=== PATIENT | male | born 1935 | race Caucasian/White ===

== ENCOUNTER 2018-02-28 04:44 | Inpatient (IN) | payer MEDICARE, OTHER ==
[2018-02-28 07:05] LABS: BASO % 0.3 % (0.0-1.0); EOS # 0.1 10^3/uL (0.0-0.50); EOS % 1.1 % (0.0-3.0); HEMATOCRIT 28.6 % (42.0-52.0); HEMOGLOBIN 8.9 g/dl (13.5-17.5); IMMATURE GRANULOCYTE % 1.6 % (0-3.0); LYMPH # 1.5 10^3/uL (1.5-4.5); LYMPH % 12.5 % (24.0-44.0); MEAN CORPUSCULAR HEMOGLOBIN 27.2 pg (27.0-33.0); MEAN CORPUSCULAR HGB CONC 31.1 g/dl (32.0-36.5); MEAN CORPUSCULAR VOLUME 87.5 fl (80.0-96.0); MONO % 8.4 % (0.0-5.0); NEUTROPHILS # 8.8 10^3/uL (1.8-7.7); NEUTROPHILS % 76.1 % (36.0-66.0); PLATELET COUNT, AUTOMATED 299 10^3/uL (150-450); RED BLOOD COUNT 3.27 10^6/uL (4.30-6.10); RED CELL DISTRIBUTION WIDTH 15.1 % (11.5-14.5); WHITE BLOOD COUNT 11.6 10^3/uL (4.0-10.0)
[2018-02-28 07:26] LABS: ALBUMIN 2.2 GM/DL (3.2-5.2); ALBUMIN/GLOBULIN RATIO 0.41 (1.00-1.93); ALKALINE PHOSPHATASE 185 U/L (45-117); ALT/SGPT 30 U/L (12-78); ANION GAP 8 MEQ/L (8-16); AST/SGOT 30 U/L (7-37); BILIRUBIN,DIRECT < 0.1 MG/DL (0.0-0.2); BILIRUBIN,TOTAL 0.3 MG/DL (0.2-1.0); BLOOD UREA NITROGEN 36 MG/DL (7-18); CALCIUM LEVEL 8.8 MG/DL (8.8-10.2); CARBON DIOXIDE LEVEL 23 MEQ/L (21-32); CHLORIDE LEVEL 111 MEQ/L (98-107); CREATININE FOR GFR 2.27 MG/DL (0.70-1.30); GLOMERULAR FILTRATION RATE 29.6 (>35); GLUCOSE, FASTING 176 MG/DL (70-100); LIPASE 33 U/L (73-393); SODIUM LEVEL 142 MEQ/L (136-145); TOTAL PROTEIN 7.6 GM/DL (6.4-8.2)
[2018-02-28] MEDS: NS 1,000 ML IV ×3 (07:38→23:17)
[2018-02-28] MEDS ORDERED: GASTROGRAFIN SOLUTION 30ML (Q9963) As Ordered (07:56)
[2018-02-28] MEDS: BICALUTAMIDE 50 MG TAB PO (09:00)
[2018-02-28] MEDS: ATENOLOL 25 MG TAB PO (09:00)
[2018-02-28 09:27] LABS: KETONE, URINE AUTO RFX NEGATIVE (NEGATIVE); LEUKOCYTE ESTERASE UR AUTO RFX NEGATIVE (NEGATIVE); MUCUS, URINE RFX SMALL (NEGATIVE); NITRITE, URINE AUTO RFX NEGATIVE (NEGATIVE); RBC, URINE AUTO RFX 0 /HPF (0-3); SPECIFIC GRAVITY UR AUTO RFX 1.015 (1.002-1.035); SQUAM EPITHELIAL CELL UR AURFX 0 /HPF (0-6); WBC, URINE AUTO RFX 3 /HPF (0-3)
[2018-02-28] MEDS: PERCOCET 5MG/325MG TAB PO (11:24)
[2018-02-28] MEDS ORDERED: FUROSEMIDE 20 MG/2 ML VIAL (J1940) As Ordered (15:09)
[2018-02-28 17:57] LABS: BEDSIDE GLUCOSE 143 MG/DL (83-110)
[2018-02-28] MEDS ORDERED: ACETAMINOPHEN TAB 650MG DOSE (2X325MG) PO (18:45)
[2018-02-28] MEDS ORDERED: GLUCOSE 4 GM CHEW TABLET PO (19:00)
[2018-02-28] MEDS ORDERED: GLUCAGON FOR INJ 1 MG VIAL (J1610) SC (19:00)
[2018-02-28] MEDS: HumaLOG INSULIN (NovoLOG) PER UNIT SC (21:00)
[2018-02-28 22:35] LABS: BEDSIDE GLUCOSE 161 MG/DL (83-110)
[2018-02-28] MEDS: ISOSORBIDE MON. (IMDUR) 60 MG XR TAB PO (23:17)
[2018-02-28] MEDS: SENOKOT S TAB PO (23:17)
[2018-02-28] MEDS: SIMVASTATIN 20 MG TAB PO (23:17)
[2018-02-28] MEDS: DOCUSATE SODIUM 100 MG CAP PO (23:17)
[2018-02-28] MEDS: CALCIUM CARBONATE 500 MG CHEW U/D PO (23:18)
[2018-02-28] MEDS: SODIUM BICARBONATE 325 MG TAB PO (23:35)
[2018-02-28] MEDS: TOLTERODINE TARTRATE 2 MG LA CAP (DETROL LA) PO (23:35)
[2018-02-28] MEDS: MIRTAZAPINE 7.5MG PER 1/2 TABLET PO (23:35)
[2018-03-01] MEDS: ANEXSIA, NORCO 7.5MG/325MG TABLET(HYDROCODONE/APAP) PO ×3 (00:06→21:21)
[2018-03-01] MEDS: NS 1,000 ML IV ×3 (06:11→21:18)
[2018-03-01 06:56] LABS: BASO % 0.3 % (0.0-1.0); EOS # 0.1 10^3/uL (0.0-0.50); EOS % 0.7 % (0.0-3.0); HEMATOCRIT 27.2 % (42.0-52.0); HEMOGLOBIN 8.9 g/dl (13.5-17.5); IMMATURE GRANULOCYTE % 1.3 % (0-3.0); LYMPH # 1.4 10^3/uL (1.5-4.5); LYMPH % 12.6 % (24.0-44.0); MEAN CORPUSCULAR HEMOGLOBIN 27.6 pg (27.0-33.0); MEAN CORPUSCULAR HGB CONC 32.7 g/dl (32.0-36.5); MEAN CORPUSCULAR VOLUME 84.2 fl (80.0-96.0); MONO # 0.9 10^3/uL (0.0-0.8); MONO % 8.7 % (0.0-5.0); NEUTROPHILS # 8.2 10^3/uL (1.8-7.7); NEUTROPHILS % 76.4 % (36.0-66.0); PLATELET COUNT, AUTOMATED 296 10^3/uL (150-450); RED BLOOD COUNT 3.23 10^6/uL (4.30-6.10); WHITE BLOOD COUNT 10.7 10^3/uL (4.0-10.0)
[2018-03-01 07:20] LABS: ALBUMIN/GLOBULIN RATIO 0.38 (1.00-1.93); ALKALINE PHOSPHATASE 178 U/L (45-117); ALT/SGPT 25 U/L (12-78); ANION GAP 11 MEQ/L (8-16); AST/SGOT 21 U/L (7-37); BILIRUBIN,TOTAL 0.5 MG/DL (0.2-1.0); BLOOD UREA NITROGEN 30 MG/DL (7-18); CALCIUM LEVEL 8.5 MG/DL (8.8-10.2); CARBON DIOXIDE LEVEL 21 MEQ/L (21-32); CHLORIDE LEVEL 107 MEQ/L (98-107); CREATININE FOR GFR 1.89 MG/DL (0.70-1.30); GLOMERULAR FILTRATION RATE 36.5 (>35); GLUCOSE, FASTING 176 MG/DL (70-100); MAGNESIUM LEVEL 1.6 MG/DL (1.8-2.4); PHOSPHORUS LEVEL 3.9 MG/DL (2.5-4.9); POTASSIUM SERUM 4.1 MEQ/L (3.5-5.1); SODIUM LEVEL 139 MEQ/L (136-145); TOTAL PROTEIN 7.2 GM/DL (6.4-8.2)
[2018-03-01] MEDS: ATENOLOL 25 MG TAB PO (08:14)
[2018-03-01] MEDS: OMEPRAZOLE 20 MG CAP PO (08:14)
[2018-03-01] MEDS: LEVEMIR (INSULIN DETEMIR) 1 UNITS/0.01ML SC (08:15)
[2018-03-01] MEDS: SENOKOT S TAB PO ×2 (08:15→21:19)
[2018-03-01] MEDS: DOCUSATE SODIUM 100 MG CAP PO ×2 (08:15→21:20)
[2018-03-01] MEDS: ASPIRIN 81 MG ENTERIC TAB PO (08:15)
[2018-03-01] MEDS: HumaLOG INSULIN (NovoLOG) PER UNIT SC ×4 (08:16→20:14)
[2018-03-01] MEDS: SODIUM BICARBONATE 325 MG TAB PO ×2 (08:20→21:19)
[2018-03-01] MEDS: BICALUTAMIDE 50 MG TAB PO (08:20)
[2018-03-01 11:40] LABS: BEDSIDE GLUCOSE 138 MG/DL (83-110)
[2018-03-01 17:05] LABS: BEDSIDE GLUCOSE 52 MG/DL (83-110)
[2018-03-01 17:05] LABS: BEDSIDE GLUCOSE 46 MG/DL (83-110)
[2018-03-01] MEDS: ENOXAPARIN 30 MG/0.3 ML SYR (J1650) SC (17:19)
[2018-03-01 20:08] LABS: BEDSIDE GLUCOSE 62 MG/DL (83-110)
[2018-03-01] MEDS: MIRTAZAPINE 7.5MG PER 1/2 TABLET PO (21:18)
[2018-03-01] MEDS: ISOSORBIDE MON. (IMDUR) 60 MG XR TAB PO (21:19)
[2018-03-01] MEDS: SIMVASTATIN 20 MG TAB PO (21:19)
[2018-03-01] MEDS: TOLTERODINE TARTRATE 2 MG LA CAP (DETROL LA) PO (21:19)
[2018-03-01] MEDS: MAGNESIUM OXIDE 400 MG TAB (MAG-OX) PO (21:19)
[2018-03-01 22:22] LABS: BEDSIDE GLUCOSE 75 MG/DL (83-110)
[2018-03-01 22:24] LABS: BEDSIDE GLUCOSE 121 MG/DL (83-110)
[2018-03-02] MEDS: NS 1,000 ML IV ×4 (00:46→20:03)
[2018-03-02] MEDS: ANEXSIA, NORCO 7.5MG/325MG TABLET(HYDROCODONE/APAP) PO ×2 (06:16→20:06)
[2018-03-02 06:33] LABS: BASO % 0.3 % (0.0-1.0); EOS # 0.1 10^3/uL (0.0-0.50); HEMATOCRIT 28.6 % (42.0-52.0); HEMOGLOBIN 9.1 g/dl (13.5-17.5); IMMATURE GRANULOCYTE % 1.4 % (0-3.0); LYMPH # 1.4 10^3/uL (1.5-4.5); LYMPH % 13.8 % (24.0-44.0); MEAN CORPUSCULAR HEMOGLOBIN 27.5 pg (27.0-33.0); MEAN CORPUSCULAR HGB CONC 31.8 g/dl (32.0-36.5); MEAN CORPUSCULAR VOLUME 86.4 fl (80.0-96.0); MONO # 0.9 10^3/uL (0.0-0.8); MONO % 8.1 % (0.0-5.0); NEUTROPHILS # 7.9 10^3/uL (1.8-7.7); NEUTROPHILS % 75.4 % (36.0-66.0); PLATELET COUNT, AUTOMATED 283 10^3/uL (150-450); RED BLOOD COUNT 3.31 10^6/uL (4.30-6.10); WHITE BLOOD COUNT 10.4 10^3/uL (4.0-10.0)
[2018-03-02 06:57] LABS: ALBUMIN 1.8 GM/DL (3.2-5.2); ALBUMIN/GLOBULIN RATIO 0.34 (1.00-1.93); ALKALINE PHOSPHATASE 169 U/L (45-117); ALT/SGPT 22 U/L (12-78); ANION GAP 10 MEQ/L (8-16); AST/SGOT 28 U/L (7-37); BILIRUBIN,TOTAL 0.3 MG/DL (0.2-1.0); BLOOD UREA NITROGEN 29 MG/DL (7-18); CALCIUM LEVEL 8.2 MG/DL (8.8-10.2); CARBON DIOXIDE LEVEL 20 MEQ/L (21-32); CHLORIDE LEVEL 111 MEQ/L (98-107); CREATININE FOR GFR 1.66 MG/DL (0.70-1.30); GLOMERULAR FILTRATION RATE 42.4 (>35); GLUCOSE, FASTING 71 MG/DL (70-100); MAGNESIUM LEVEL 1.6 MG/DL (1.8-2.4); POTASSIUM SERUM 4.2 MEQ/L (3.5-5.1); SODIUM LEVEL 141 MEQ/L (136-145); TOTAL PROTEIN 7.1 GM/DL (6.4-8.2)
[2018-03-02] MEDS: HumaLOG INSULIN (NovoLOG) PER UNIT SC ×4 (07:58→20:06)
[2018-03-02] MEDS: MAGNESIUM OXIDE 400 MG TAB (MAG-OX) PO ×3 (09:33→20:05)
[2018-03-02] MEDS: BICALUTAMIDE 50 MG TAB PO ×2 (09:33→12:44)
[2018-03-02] MEDS: OMEPRAZOLE 20 MG CAP PO (09:33)
[2018-03-02] MEDS: DOCUSATE SODIUM 100 MG CAP PO ×2 (09:33→20:05)
[2018-03-02] MEDS: SODIUM BICARBONATE 325 MG TAB PO ×2 (09:33→20:04)
[2018-03-02] MEDS: SENOKOT S TAB PO ×2 (09:34→20:05)
[2018-03-02] MEDS: LEVEMIR (INSULIN DETEMIR) 1 UNITS/0.01ML SC (09:34)
[2018-03-02] MEDS: ASPIRIN 81 MG ENTERIC TAB PO (09:34)
[2018-03-02] MEDS: ATENOLOL 25 MG TAB PO (09:35)
[2018-03-02] MEDS: ENOXAPARIN 30 MG/0.3 ML SYR (J1650) SC (09:36)
[2018-03-02 11:43] LABS: BEDSIDE GLUCOSE 185 MG/DL (83-110)
[2018-03-02 12:21] LABS: BEDSIDE GLUCOSE 153 MG/DL (83-110)
[2018-03-02] MEDS: DEXTROSE 50% 50 ML SYRINGE IV (17:27)
[2018-03-02] MEDS: ISOSORBIDE MON. (IMDUR) 60 MG XR TAB PO (20:04)
[2018-03-02] MEDS: TOLTERODINE TARTRATE 2 MG LA CAP (DETROL LA) PO (20:04)
[2018-03-02] MEDS: SIMVASTATIN 20 MG TAB PO (20:05)
[2018-03-02] MEDS: MIRTAZAPINE 7.5MG PER 1/2 TABLET PO (20:05)
[2018-03-02 20:06] LABS: BEDSIDE GLUCOSE 82 MG/DL (83-110)
[2018-03-03 00:20] LABS: PSA TOTAL 1.6 ng/mL (0.0-4.0); TESTOSTERONE FREE (DIRECT) 3.1 pg/mL (6.6-18.1)
[2018-03-03] MEDS: NS 1,000 ML IV ×3 (03:56→20:23)
[2018-03-03 06:26] LABS: BASO % 0.2 % (0.0-1.0); EOS # 0.1 10^3/uL (0.0-0.50); EOS % 1.1 % (0.0-3.0); HEMATOCRIT 26.5 % (42.0-52.0); HEMOGLOBIN 8.4 g/dl (13.5-17.5); IMMATURE GRANULOCYTE % 1.2 % (0-3.0); LYMPH % 11.8 % (24.0-44.0); MEAN CORPUSCULAR HEMOGLOBIN 27.4 pg (27.0-33.0); MEAN CORPUSCULAR HGB CONC 31.7 g/dl (32.0-36.5); MEAN CORPUSCULAR VOLUME 86.3 fl (80.0-96.0); MONO # 0.7 10^3/uL (0.0-0.8); MONO % 7.7 % (0.0-5.0); NEUTROPHILS # 6.7 10^3/uL (1.8-7.7); PLATELET COUNT, AUTOMATED 277 10^3/uL (150-450); RED BLOOD COUNT 3.07 10^6/uL (4.30-6.10); RED CELL DISTRIBUTION WIDTH 15.2 % (11.5-14.5); WHITE BLOOD COUNT 8.6 10^3/uL (4.0-10.0)
[2018-03-03 06:51] LABS: ALBUMIN 1.7 GM/DL (3.2-5.2); ALBUMIN/GLOBULIN RATIO 0.37 (1.00-1.93); ALKALINE PHOSPHATASE 156 U/L (45-117); ALT/SGPT 21 U/L (12-78); ANION GAP 9 MEQ/L (8-16); AST/SGOT 27 U/L (7-37); BILIRUBIN,TOTAL 0.2 MG/DL (0.2-1.0); BLOOD UREA NITROGEN 25 MG/DL (7-18); CALCIUM LEVEL 8.3 MG/DL (8.8-10.2); CARBON DIOXIDE LEVEL 21 MEQ/L (21-32); CHLORIDE LEVEL 112 MEQ/L (98-107); CREATININE FOR GFR 1.56 MG/DL (0.70-1.30); GLOMERULAR FILTRATION RATE 45.6 (>35); GLUCOSE, FASTING 56 MG/DL (70-100); MAGNESIUM LEVEL 1.7 MG/DL (1.8-2.4); POTASSIUM SERUM 3.9 MEQ/L (3.5-5.1); SODIUM LEVEL 142 MEQ/L (136-145); TOTAL PROTEIN 6.3 GM/DL (6.4-8.2)
[2018-03-03] MEDS: HumaLOG INSULIN (NovoLOG) PER UNIT SC ×5 (07:38→22:17)
[2018-03-03] MEDS: ANEXSIA, NORCO 7.5MG/325MG TABLET(HYDROCODONE/APAP) PO ×2 (08:48→20:23)
[2018-03-03] MEDS: SODIUM BICARBONATE 325 MG TAB PO ×2 (08:48→20:22)
[2018-03-03] MEDS: BICALUTAMIDE 50 MG TAB PO (08:49)
[2018-03-03] MEDS: ENOXAPARIN 30 MG/0.3 ML SYR (J1650) SC (08:49)
[2018-03-03] MEDS: ATENOLOL 25 MG TAB PO (08:49)
[2018-03-03] MEDS: MAGNESIUM OXIDE 400 MG TAB (MAG-OX) PO ×3 (08:50→20:22)
[2018-03-03] MEDS: ASPIRIN 81 MG ENTERIC TAB PO (08:50)
[2018-03-03] MEDS: DOCUSATE SODIUM 100 MG CAP PO ×2 (08:50→20:22)
[2018-03-03] MEDS: SENOKOT S TAB PO ×2 (08:50→20:22)
[2018-03-03] MEDS: OMEPRAZOLE 20 MG CAP PO (08:50)
[2018-03-03] MEDS ORDERED: LEVEMIR (INSULIN DETEMIR) 1 UNITS/0.01ML SC (09:00)
[2018-03-03] MEDS: ISOSORBIDE MON. (IMDUR) 60 MG XR TAB PO (20:21)
[2018-03-03] MEDS: MIRTAZAPINE 7.5MG PER 1/2 TABLET PO (20:21)
[2018-03-03] MEDS: TOLTERODINE TARTRATE 2 MG LA CAP (DETROL LA) PO (20:22)
[2018-03-03] MEDS: SIMVASTATIN 20 MG TAB PO (20:22)
[2018-03-03 20:49] LABS: BEDSIDE GLUCOSE 264 MG/DL (83-110)
[2018-03-04] MEDS: NS 1,000 ML IV ×3 (05:50→21:40)
[2018-03-04] MEDS: ANEXSIA, NORCO 7.5MG/325MG TABLET(HYDROCODONE/APAP) PO ×3 (05:51→21:40)
[2018-03-04 06:04] LABS: BASO % 0.6 % (0.0-1.0); EOS # 0.1 10^3/uL (0.0-0.50); EOS % 1.7 % (0.0-3.0); HEMATOCRIT 26.8 % (42.0-52.0); HEMOGLOBIN 8.6 g/dl (13.5-17.5); IMMATURE GRANULOCYTE % 1.6 % (0-3.0); LYMPH # 1.2 10^3/uL (1.5-4.5); LYMPH % 16.8 % (24.0-44.0); MEAN CORPUSCULAR HEMOGLOBIN 27.7 pg (27.0-33.0); MEAN CORPUSCULAR HGB CONC 32.1 g/dl (32.0-36.5); MEAN CORPUSCULAR VOLUME 86.5 fl (80.0-96.0); MONO # 0.5 10^3/uL (0.0-0.8); MONO % 7.8 % (0.0-5.0); NEUTROPHILS % 71.5 % (36.0-66.0); PLATELET COUNT, AUTOMATED 269 10^3/uL (150-450); RED CELL DISTRIBUTION WIDTH 15.1 % (11.5-14.5)
[2018-03-04 06:27] LABS: ALBUMIN 1.8 GM/DL (3.2-5.2); ALBUMIN/GLOBULIN RATIO 0.38 (1.00-1.93); ALKALINE PHOSPHATASE 165 U/L (45-117); ALT/SGPT 24 U/L (12-78); ANION GAP 9 MEQ/L (8-16); AST/SGOT 33 U/L (7-37); BILIRUBIN,TOTAL 0.2 MG/DL (0.2-1.0); BLOOD UREA NITROGEN 26 MG/DL (7-18); CALCIUM LEVEL 8.4 MG/DL (8.8-10.2); CARBON DIOXIDE LEVEL 22 MEQ/L (21-32); CHLORIDE LEVEL 111 MEQ/L (98-107); CREATININE FOR GFR 1.58 MG/DL (0.70-1.30); GLOMERULAR FILTRATION RATE 44.9 (>35); GLUCOSE, FASTING 139 MG/DL (70-100); MAGNESIUM LEVEL 1.9 MG/DL (1.8-2.4); POTASSIUM SERUM 4.5 MEQ/L (3.5-5.1); SODIUM LEVEL 142 MEQ/L (136-145); TOTAL PROTEIN 6.5 GM/DL (6.4-8.2)
[2018-03-04] MEDS: HumaLOG INSULIN (NovoLOG) PER UNIT SC ×4 (07:15→21:00)
[2018-03-04] MEDS: SENOKOT S TAB PO ×2 (08:42→21:25)
[2018-03-04] MEDS: ATENOLOL 25 MG TAB PO (08:42)
[2018-03-04] MEDS: OMEPRAZOLE 20 MG CAP PO (08:42)
[2018-03-04] MEDS: ASPIRIN 81 MG ENTERIC TAB PO (08:43)
[2018-03-04] MEDS: BICALUTAMIDE 50 MG TAB PO (08:43)
[2018-03-04] MEDS: DOCUSATE SODIUM 100 MG CAP PO ×2 (08:43→21:25)
[2018-03-04] MEDS: MAGNESIUM OXIDE 400 MG TAB (MAG-OX) PO ×3 (08:43→21:25)
[2018-03-04] MEDS: ENOXAPARIN 30 MG/0.3 ML SYR (J1650) SC (08:43)
[2018-03-04] MEDS: SODIUM BICARBONATE 325 MG TAB PO ×2 (08:43→21:24)
[2018-03-04 20:47] LABS: BEDSIDE GLUCOSE 171 MG/DL (83-110)
[2018-03-04] MEDS: SIMVASTATIN 20 MG TAB PO (21:24)
[2018-03-04] MEDS: MIRTAZAPINE 7.5MG PER 1/2 TABLET PO (21:25)
[2018-03-04] MEDS: TOLTERODINE TARTRATE 2 MG LA CAP (DETROL LA) PO (21:25)
[2018-03-04] MEDS: ISOSORBIDE MON. (IMDUR) 60 MG XR TAB PO (21:26)
[2018-03-05 06:17] LABS: BASO % 0.5 % (0.0-1.0); EOS # 0.1 10^3/uL (0.0-0.50); EOS % 1.4 % (0.0-3.0); HEMATOCRIT 26.5 % (42.0-52.0); HEMOGLOBIN 8.7 g/dl (13.5-17.5); IMMATURE GRANULOCYTE % 1.2 % (0-3.0); LYMPH # 1.5 10^3/uL (1.5-4.5); LYMPH % 17.1 % (24.0-44.0); MEAN CORPUSCULAR HEMOGLOBIN 27.4 pg (27.0-33.0); MEAN CORPUSCULAR HGB CONC 32.8 g/dl (32.0-36.5); MEAN CORPUSCULAR VOLUME 83.6 fl (80.0-96.0); MONO # 0.6 10^3/uL (0.0-0.8); MONO % 7.2 % (0.0-5.0); NEUTROPHILS # 6.3 10^3/uL (1.8-7.7); NEUTROPHILS % 72.6 % (36.0-66.0); PLATELET COUNT, AUTOMATED 301 10^3/uL (150-450); RED BLOOD COUNT 3.17 10^6/uL (4.30-6.10); WHITE BLOOD COUNT 8.7 10^3/uL (4.0-10.0)
[2018-03-05 06:31] LABS: ALBUMIN 1.7 GM/DL (3.2-5.2); ALBUMIN/GLOBULIN RATIO 0.35 (1.00-1.93); ALKALINE PHOSPHATASE 186 U/L (45-117); ALT/SGPT 24 U/L (12-78); ANION GAP 9 MEQ/L (8-16); AST/SGOT 37 U/L (7-37); BILIRUBIN,TOTAL 0.2 MG/DL (0.2-1.0); BLOOD UREA NITROGEN 23 MG/DL (7-18); CALCIUM LEVEL 8.3 MG/DL (8.8-10.2); CARBON DIOXIDE LEVEL 22 MEQ/L (21-32); CHLORIDE LEVEL 109 MEQ/L (98-107); CREATININE FOR GFR 1.55 MG/DL (0.70-1.30); GLOMERULAR FILTRATION RATE 45.9 (>35); GLUCOSE, FASTING 148 MG/DL (70-100); MAGNESIUM LEVEL 1.8 MG/DL (1.8-2.4); POTASSIUM SERUM 4.5 MEQ/L (3.5-5.1); SODIUM LEVEL 140 MEQ/L (136-145); TOTAL PROTEIN 6.5 GM/DL (6.4-8.2)
[2018-03-05] MEDS: HumaLOG INSULIN (NovoLOG) PER UNIT SC ×4 (07:30→22:13)
[2018-03-05] MEDS: ENOXAPARIN 30 MG/0.3 ML SYR (J1650) SC (09:11)
[2018-03-05] MEDS: BICALUTAMIDE 50 MG TAB PO (09:11)
[2018-03-05] MEDS: SODIUM BICARBONATE 325 MG TAB PO ×2 (09:11→22:11)
[2018-03-05] MEDS: MAGNESIUM OXIDE 400 MG TAB (MAG-OX) PO ×3 (09:12→22:12)
[2018-03-05] MEDS: ASPIRIN 81 MG ENTERIC TAB PO (09:12)
[2018-03-05] MEDS: DOCUSATE SODIUM 100 MG CAP PO ×2 (09:12→22:12)
[2018-03-05] MEDS: ATENOLOL 25 MG TAB PO (09:14)
[2018-03-05] MEDS: OMEPRAZOLE 20 MG CAP PO (09:15)
[2018-03-05] MEDS: SENOKOT S TAB PO ×2 (09:15→22:12)
[2018-03-05] MEDS: ANEXSIA, NORCO 7.5MG/325MG TABLET(HYDROCODONE/APAP) PO ×2 (10:38→22:41)
[2018-03-05] MEDS: NS 1,000 ML IV ×2 (10:39→22:39)
[2018-03-05 12:11] LABS: BEDSIDE GLUCOSE 59 MG/DL (83-110)
[2018-03-05 12:11] LABS: BEDSIDE GLUCOSE 217 MG/DL (83-110)
[2018-03-05 12:11] LABS: BEDSIDE GLUCOSE 114 MG/DL (83-110)
[2018-03-05 12:11] LABS: BEDSIDE GLUCOSE 217 MG/DL (83-110)
[2018-03-05 12:11] LABS: BEDSIDE GLUCOSE 138 MG/DL (83-110)
[2018-03-05 12:11] LABS: BEDSIDE GLUCOSE 54 MG/DL (83-110)
[2018-03-05 12:11] LABS: BEDSIDE GLUCOSE 269 MG/DL (83-110)
[2018-03-05 12:11] LABS: BEDSIDE GLUCOSE 72 MG/DL (83-110)
[2018-03-05 12:11] LABS: BEDSIDE GLUCOSE 134 MG/DL (83-110)
[2018-03-05 12:11] LABS: BEDSIDE GLUCOSE 213 MG/DL (83-110)
[2018-03-05 16:56] LABS: BEDSIDE GLUCOSE 133 MG/DL (83-110)
[2018-03-05] MEDS: DONEPEZIL 5 MG TAB PO (17:09)
[2018-03-05 18:53] LABS: FREE T4 1.22 NG/DL (0.76-1.46)
[2018-03-05 20:10] LABS: BEDSIDE GLUCOSE 301 MG/DL (83-110)
[2018-03-05] MEDS: ARIPiprazole 2 MG TAB PO (22:11)
[2018-03-05] MEDS: MIRTAZAPINE 7.5MG PER 1/2 TABLET PO (22:11)
[2018-03-05] MEDS: TOLTERODINE TARTRATE 2 MG LA CAP (DETROL LA) PO (22:11)
[2018-03-05] MEDS: SIMVASTATIN 20 MG TAB PO (22:12)
[2018-03-05] MEDS: ISOSORBIDE MON. (IMDUR) 60 MG XR TAB PO (22:13)
[2018-03-06 02:30] LABS: BEDSIDE GLUCOSE 112 MG/DL (83-110)
[2018-03-06 06:18] LABS: BASO % 0.4 % (0.0-1.0); EOS # 0.2 10^3/uL (0.0-0.50); HEMATOCRIT 26.9 % (42.0-52.0); HEMOGLOBIN 8.6 g/dl (13.5-17.5); IMMATURE GRANULOCYTE % 1.5 % (0-3.0); LYMPH # 1.4 10^3/uL (1.5-4.5); LYMPH % 19.3 % (24.0-44.0); MEAN CORPUSCULAR HEMOGLOBIN 27.7 pg (27.0-33.0); MEAN CORPUSCULAR VOLUME 86.5 fl (80.0-96.0); MONO # 0.8 10^3/uL (0.0-0.8); MONO % 10.2 % (0.0-5.0); NEUTROPHILS # 4.9 10^3/uL (1.8-7.7); NEUTROPHILS % 66.6 % (36.0-66.0); PLATELET COUNT, AUTOMATED 290 10^3/uL (150-450); RED BLOOD COUNT 3.11 10^6/uL (4.30-6.10); RED CELL DISTRIBUTION WIDTH 15.6 % (11.5-14.5); WHITE BLOOD COUNT 7.4 10^3/uL (4.0-10.0)
[2018-03-06 06:38] LABS: ALBUMIN 1.8 GM/DL (3.2-5.2); ALBUMIN/GLOBULIN RATIO 0.36 (1.00-1.93); ALKALINE PHOSPHATASE 184 U/L (45-117); ALT/SGPT 24 U/L (12-78); ANION GAP 9 MEQ/L (8-16); AST/SGOT 35 U/L (7-37); BILIRUBIN,TOTAL 0.3 MG/DL (0.2-1.0); BLOOD UREA NITROGEN 23 MG/DL (7-18); CALCIUM LEVEL 8.5 MG/DL (8.8-10.2); CARBON DIOXIDE LEVEL 24 MEQ/L (21-32); CHLORIDE LEVEL 106 MEQ/L (98-107); CREATININE FOR GFR 1.56 MG/DL (0.70-1.30); GLOMERULAR FILTRATION RATE 45.6 (>35); GLUCOSE, FASTING 128 MG/DL (70-100); MAGNESIUM LEVEL 2.2 MG/DL (1.8-2.4); POTASSIUM SERUM 4.9 MEQ/L (3.5-5.1); SODIUM LEVEL 139 MEQ/L (136-145); TOTAL PROTEIN 6.8 GM/DL (6.4-8.2)
[2018-03-06] MEDS: HumaLOG INSULIN (NovoLOG) PER UNIT SC ×4 (07:30→21:35)
[2018-03-06] MEDS: DONEPEZIL 5 MG TAB PO (09:00)
[2018-03-06] MEDS: DOCUSATE SODIUM 100 MG CAP PO ×2 (09:03→21:33)
[2018-03-06] MEDS: SODIUM BICARBONATE 325 MG TAB PO ×2 (09:04→21:37)
[2018-03-06] MEDS: ATENOLOL 25 MG TAB PO (09:04)
[2018-03-06] MEDS: MAGNESIUM OXIDE 400 MG TAB (MAG-OX) PO ×3 (09:05→21:33)
[2018-03-06] MEDS: ANEXSIA, NORCO 7.5MG/325MG TABLET(HYDROCODONE/APAP) PO ×2 (09:05→09:06)
[2018-03-06] MEDS: ASPIRIN 81 MG ENTERIC TAB PO (09:06)
[2018-03-06] MEDS: SENOKOT S TAB PO ×2 (09:06→21:34)
[2018-03-06] MEDS: ENOXAPARIN 30 MG/0.3 ML SYR (J1650) SC (09:06)
[2018-03-06] MEDS: OMEPRAZOLE 20 MG CAP PO (09:06)
[2018-03-06] MEDS: BICALUTAMIDE 50 MG TAB PO (09:06)
[2018-03-06] MEDS: NS 1,000 ML IV ×2 (11:13→23:29)
[2018-03-06 11:29] LABS: BEDSIDE GLUCOSE 258 MG/DL (83-110)
[2018-03-06 16:46] LABS: BEDSIDE GLUCOSE 119 MG/DL (83-110)
[2018-03-06 20:40] LABS: BEDSIDE GLUCOSE 254 MG/DL (83-110)
[2018-03-06] MEDS: MIRTAZAPINE 7.5MG PER 1/2 TABLET PO (21:33)
[2018-03-06] MEDS: SIMVASTATIN 20 MG TAB PO (21:33)
[2018-03-06] MEDS: TOLTERODINE TARTRATE 2 MG LA CAP (DETROL LA) PO (21:33)
[2018-03-06] MEDS: ISOSORBIDE MON. (IMDUR) 60 MG XR TAB PO (21:34)
[2018-03-06] MEDS: ARIPiprazole 2 MG TAB PO (21:34)
[2018-03-07 06:08] LABS: BASO % 0.4 % (0.0-1.0); EOS # 0.1 10^3/uL (0.0-0.50); EOS % 1.3 % (0.0-3.0); HEMATOCRIT 25.3 % (42.0-52.0); HEMOGLOBIN 8.3 g/dl (13.5-17.5); IMMATURE GRANULOCYTE % 1.7 % (0-3.0); LYMPH # 1.4 10^3/uL (1.5-4.5); LYMPH % 16.6 % (24.0-44.0); MEAN CORPUSCULAR HEMOGLOBIN 27.9 pg (27.0-33.0); MEAN CORPUSCULAR HGB CONC 32.8 g/dl (32.0-36.5); MEAN CORPUSCULAR VOLUME 85.2 fl (80.0-96.0); MONO # 0.8 10^3/uL (0.0-0.8); NEUTROPHILS # 5.8 10^3/uL (1.8-7.7); PLATELET COUNT, AUTOMATED 276 10^3/uL (150-450); RED BLOOD COUNT 2.97 10^6/uL (4.30-6.10); RED CELL DISTRIBUTION WIDTH 15.1 % (11.5-14.5); WHITE BLOOD COUNT 8.2 10^3/uL (4.0-10.0)
[2018-03-07 06:26] LABS: ALBUMIN 1.8 GM/DL (3.2-5.2); ALBUMIN/GLOBULIN RATIO 0.38 (1.00-1.93); ALKALINE PHOSPHATASE 179 U/L (45-117); ALT/SGPT 25 U/L (12-78); ANION GAP 9 MEQ/L (8-16); AST/SGOT 32 U/L (7-37); BILIRUBIN,TOTAL 0.3 MG/DL (0.2-1.0); BLOOD UREA NITROGEN 20 MG/DL (7-18); CALCIUM LEVEL 8.5 MG/DL (8.8-10.2); CARBON DIOXIDE LEVEL 24 MEQ/L (21-32); CHLORIDE LEVEL 106 MEQ/L (98-107); CREATININE FOR GFR 1.55 MG/DL (0.70-1.30); GLOMERULAR FILTRATION RATE 45.9 (>35); GLUCOSE, FASTING 137 MG/DL (70-100); MAGNESIUM LEVEL 2.1 MG/DL (1.8-2.4); POTASSIUM SERUM 4.4 MEQ/L (3.5-5.1); SODIUM LEVEL 139 MEQ/L (136-145); TOTAL PROTEIN 6.6 GM/DL (6.4-8.2)
[2018-03-07] MEDS: HumaLOG INSULIN (NovoLOG) PER UNIT SC ×4 (08:34→21:53)
[2018-03-07] MEDS: SODIUM BICARBONATE 325 MG TAB PO ×2 (08:51→21:35)
[2018-03-07] MEDS: SENOKOT S TAB PO ×2 (08:51→21:35)
[2018-03-07] MEDS: MAGNESIUM OXIDE 400 MG TAB (MAG-OX) PO ×3 (08:51→21:35)
[2018-03-07] MEDS: OMEPRAZOLE 20 MG CAP PO (08:51)
[2018-03-07] MEDS: DOCUSATE SODIUM 100 MG CAP PO ×2 (08:51→21:35)
[2018-03-07] MEDS: ASPIRIN 81 MG ENTERIC TAB PO (08:51)
[2018-03-07] MEDS: BICALUTAMIDE 50 MG TAB PO (08:51)
[2018-03-07] MEDS: ATENOLOL 25 MG TAB PO (08:52)
[2018-03-07] MEDS: ENOXAPARIN 30 MG/0.3 ML SYR (J1650) SC (08:53)
[2018-03-07] MEDS: DONEPEZIL 5 MG TAB PO (08:53)
[2018-03-07 09:55] LABS: VITAMIN B12 LEVEL 334 PG/ML (247-911)
[2018-03-07] MEDS: NS 1,000 ML IV (11:01)
[2018-03-07 11:45] LABS: BEDSIDE GLUCOSE 231 MG/DL (83-110)
[2018-03-07 16:43] LABS: BEDSIDE GLUCOSE 198 MG/DL (83-110)
[2018-03-07 20:28] LABS: BEDSIDE GLUCOSE 189 MG/DL (83-110)
[2018-03-07] MEDS: MIRTAZAPINE 7.5MG PER 1/2 TABLET PO (21:35)
[2018-03-07] MEDS: ARIPiprazole 2 MG TAB PO (21:35)
[2018-03-07] MEDS: SIMVASTATIN 20 MG TAB PO (21:35)
[2018-03-07] MEDS: TOLTERODINE TARTRATE 2 MG LA CAP (DETROL LA) PO (21:36)
[2018-03-07] MEDS: ISOSORBIDE MON. (IMDUR) 60 MG XR TAB PO (21:36)
[2018-03-08 06:29] LABS: BEDSIDE GLUCOSE 159 MG/DL (83-110)
[2018-03-08] MEDS: ENOXAPARIN 30 MG/0.3 ML SYR (J1650) SC (08:24)
[2018-03-08] MEDS: SODIUM BICARBONATE 325 MG TAB PO ×2 (08:25→21:02)
[2018-03-08] MEDS: DOCUSATE SODIUM 100 MG CAP PO ×2 (08:25→20:52)
[2018-03-08] MEDS: HumaLOG INSULIN (NovoLOG) PER UNIT SC ×4 (08:25→20:51)
[2018-03-08] MEDS: ATENOLOL 25 MG TAB PO (08:26)
[2018-03-08] MEDS: MAGNESIUM OXIDE 400 MG TAB (MAG-OX) PO ×3 (08:26→21:03)
[2018-03-08] MEDS: SENOKOT S TAB PO ×2 (08:27→20:52)
[2018-03-08] MEDS: BICALUTAMIDE 50 MG TAB PO (08:27)
[2018-03-08] MEDS: DONEPEZIL 5 MG TAB PO (08:27)
[2018-03-08] MEDS: OMEPRAZOLE 20 MG CAP PO (08:27)
[2018-03-08] MEDS: ASPIRIN 81 MG ENTERIC TAB PO (08:27)
[2018-03-08 10:54] LABS: HEMATOCRIT 26.9 % (42.0-52.0); HEMOGLOBIN 8.4 g/dl (13.5-17.5); MEAN CORPUSCULAR HEMOGLOBIN 26.9 pg (27.0-33.0); MEAN CORPUSCULAR HGB CONC 31.2 g/dl (32.0-36.5); MEAN CORPUSCULAR VOLUME 86.2 fl (80.0-96.0); PLATELET COUNT, AUTOMATED 322 10^3/uL (150-450); RED BLOOD COUNT 3.12 10^6/uL (4.30-6.10); WHITE BLOOD COUNT 8.7 10^3/uL (4.0-10.0)
[2018-03-08 11:19] LABS: ANION GAP 8 MEQ/L (8-16); BLOOD UREA NITROGEN 18 MG/DL (7-18); CALCIUM LEVEL 8.6 MG/DL (8.8-10.2); CARBON DIOXIDE LEVEL 26 MEQ/L (21-32); CHLORIDE LEVEL 104 MEQ/L (98-107); CREATININE FOR GFR 1.82 MG/DL (0.70-1.30); GLOMERULAR FILTRATION RATE 38.2 (>35); GLUCOSE, FASTING 179 MG/DL (70-100); POTASSIUM SERUM 4.6 MEQ/L (3.5-5.1); SODIUM LEVEL 138 MEQ/L (136-145)
[2018-03-08 11:54] LABS: BEDSIDE GLUCOSE 158 MG/DL (83-110)
[2018-03-08 17:22] LABS: BEDSIDE GLUCOSE 182 MG/DL (83-110)
[2018-03-08 20:29] LABS: BEDSIDE GLUCOSE 159 MG/DL (83-110)
[2018-03-08] MEDS: SIMVASTATIN 20 MG TAB PO (21:02)
[2018-03-08] MEDS: ISOSORBIDE MON. (IMDUR) 60 MG XR TAB PO (21:02)
[2018-03-08] MEDS: MIRTAZAPINE 7.5MG PER 1/2 TABLET PO (21:03)
[2018-03-08] MEDS: ARIPiprazole 2 MG TAB PO (21:03)
[2018-03-08] MEDS: TOLTERODINE TARTRATE 2 MG LA CAP (DETROL LA) PO (21:03)
[2018-03-09 06:26] LABS: BEDSIDE GLUCOSE 152 MG/DL (83-110)
[2018-03-09] MEDS: DOCUSATE SODIUM 100 MG CAP PO ×2 (08:27→20:06)
[2018-03-09] MEDS: SENOKOT S TAB PO ×2 (08:27→20:06)
[2018-03-09] MEDS: BICALUTAMIDE 50 MG TAB PO (08:27)
[2018-03-09] MEDS: ASPIRIN 81 MG ENTERIC TAB PO (08:27)
[2018-03-09] MEDS: SODIUM BICARBONATE 325 MG TAB PO ×2 (08:27→20:08)
[2018-03-09] MEDS: OMEPRAZOLE 20 MG CAP PO (08:28)
[2018-03-09] MEDS: MAGNESIUM OXIDE 400 MG TAB (MAG-OX) PO ×3 (08:28→20:06)
[2018-03-09] MEDS: ATENOLOL 25 MG TAB PO (08:28)
[2018-03-09] MEDS: DONEPEZIL 5 MG TAB PO (08:28)
[2018-03-09] MEDS: ENOXAPARIN 30 MG/0.3 ML SYR (J1650) SC (08:29)
[2018-03-09] MEDS: HumaLOG INSULIN (NovoLOG) PER UNIT SC ×4 (08:29→20:00)
[2018-03-09 10:58] LABS: HEMATOCRIT 27.3 % (42.0-52.0); HEMOGLOBIN 8.6 g/dl (13.5-17.5); MEAN CORPUSCULAR HGB CONC 31.5 g/dl (32.0-36.5); MEAN CORPUSCULAR VOLUME 85.8 fl (80.0-96.0); PLATELET COUNT, AUTOMATED 360 10^3/uL (150-450); RED BLOOD COUNT 3.18 10^6/uL (4.30-6.10); WHITE BLOOD COUNT 8.8 10^3/uL (4.0-10.0)
[2018-03-09 11:15] LABS: ANION GAP 10 MEQ/L (8-16); BLOOD UREA NITROGEN 17 MG/DL (7-18); CALCIUM LEVEL 8.8 MG/DL (8.8-10.2); CARBON DIOXIDE LEVEL 26 MEQ/L (21-32); CHLORIDE LEVEL 102 MEQ/L (98-107); CREATININE FOR GFR 1.91 MG/DL (0.70-1.30); GLOMERULAR FILTRATION RATE 36.1 (>35); GLUCOSE, FASTING 219 MG/DL (70-100); POTASSIUM SERUM 4.4 MEQ/L (3.5-5.1); SODIUM LEVEL 138 MEQ/L (136-145)
[2018-03-09 11:28] LABS: BEDSIDE GLUCOSE 241 MG/DL (83-110)
[2018-03-09] MEDS: NS 1,000 ML IV (12:13)
[2018-03-09 16:32] LABS: BEDSIDE GLUCOSE 127 MG/DL (83-110)
[2018-03-09 19:56] LABS: BEDSIDE GLUCOSE 211 MG/DL (83-110)
[2018-03-09] MEDS: ARIPiprazole 2 MG TAB PO (20:06)
[2018-03-09] MEDS: MIRTAZAPINE 7.5MG PER 1/2 TABLET PO (20:06)
[2018-03-09] MEDS: TOLTERODINE TARTRATE 2 MG LA CAP (DETROL LA) PO (20:06)
[2018-03-09] MEDS: ISOSORBIDE MON. (IMDUR) 60 MG XR TAB PO (20:08)
[2018-03-09] MEDS: SIMVASTATIN 20 MG TAB PO (20:08)
[2018-03-10 06:26] LABS: HEMATOCRIT 27.8 % (42.0-52.0); HEMOGLOBIN 8.7 g/dl (13.5-17.5); MEAN CORPUSCULAR HEMOGLOBIN 26.9 pg (27.0-33.0); MEAN CORPUSCULAR HGB CONC 31.3 g/dl (32.0-36.5); MEAN CORPUSCULAR VOLUME 86.1 fl (80.0-96.0); PLATELET COUNT, AUTOMATED 320 10^3/uL (150-450); RED BLOOD COUNT 3.23 10^6/uL (4.30-6.10); WHITE BLOOD COUNT 9.3 10^3/uL (4.0-10.0)
[2018-03-10 06:49] LABS: ANION GAP 9 MEQ/L (8-16); BLOOD UREA NITROGEN 15 MG/DL (7-18); CALCIUM LEVEL 8.7 MG/DL (8.8-10.2); CARBON DIOXIDE LEVEL 26 MEQ/L (21-32); CHLORIDE LEVEL 103 MEQ/L (98-107); CREATININE FOR GFR 1.84 MG/DL (0.70-1.30); GLOMERULAR FILTRATION RATE 37.7 (>35); GLUCOSE, FASTING 149 MG/DL (70-100); POTASSIUM SERUM 4.7 MEQ/L (3.5-5.1); SODIUM LEVEL 138 MEQ/L (136-145)
[2018-03-10] MEDS: HumaLOG INSULIN (NovoLOG) PER UNIT SC ×2 (07:18→12:00)
[2018-03-10] MEDS: ENOXAPARIN 30 MG/0.3 ML SYR (J1650) SC (07:46)
[2018-03-10] MEDS: SENOKOT S TAB PO (07:46)
[2018-03-10] MEDS: OMEPRAZOLE 20 MG CAP PO (07:46)
[2018-03-10] MEDS: ATENOLOL 25 MG TAB PO (07:47)
[2018-03-10] MEDS: DOCUSATE SODIUM 100 MG CAP PO (07:47)
[2018-03-10] MEDS: SODIUM BICARBONATE 325 MG TAB PO (07:47)
[2018-03-10] MEDS: DONEPEZIL 5 MG TAB PO (07:47)
[2018-03-10] MEDS: BICALUTAMIDE 50 MG TAB PO (07:47)
[2018-03-10] MEDS: MAGNESIUM OXIDE 400 MG TAB (MAG-OX) PO (07:48)
[2018-03-10] MEDS: ASPIRIN 81 MG ENTERIC TAB PO (07:48)
[2018-03-10 11:45] LABS: BEDSIDE GLUCOSE 249 MG/DL (83-110)
== END 2018-03-10 13:08 | DRG 693 ==
LOC: M ED 04:44 → M ED INP 20:22 → M MSPAV 22:28
DX: N13.1 Hydronephrosis with ureteral stricture, not elsewhere classified (principal); G93.40 Encephalopathy, unspecified; C79.51 Secondary malignant neoplasm of bone; C78.89 Secondary malignant neoplasm of other digestive organs; M84.48XA Pathological fracture, other site, initial encounter for fracture; F03.90 Unspecified dementia, unspecified severity, without behavioral disturbance, psychotic disturbance, mood disturbance, and anxiety; N17.9 Acute kidney failure, unspecified; E11.22 Type 2 diabetes mellitus with diabetic chronic kidney disease; K21.9 Gastro-esophageal reflux disease without esophagitis; I25.10 Atherosclerotic heart disease of native coronary artery without angina pectoris; N18.9 Chronic kidney disease, unspecified; Z85.46 Personal history of malignant neoplasm of prostate; Z92.3 Personal history of irradiation; Z92.21 Personal history of antineoplastic chemotherapy; Z79.82 Long term (current) use of aspirin; Z79.4 Long term (current) use of insulin; Z79.899 Other long term (current) drug therapy; Z88.0 Allergy status to penicillin; Z88.1 Allergy status to other antibiotic agents; Z95.1 Presence of aortocoronary bypass graft; Z90.49 Acquired absence of other specified parts of digestive tract; Z85.038 Personal history of other malignant neoplasm of large intestine; Z88.2 Allergy status to sulfonamides

== ENCOUNTER 2018-03-11 12:09 | Inpatient (IN) | payer MEDICARE, OTHER ==
[2018-03-11] MEDS: NS 1,000 ML IV ×3 (13:00→14:45)
[2018-03-11 13:01] LABS: BASO % 0.4 % (0.0-1.0); EOS # 0.1 10^3/uL (0.0-0.50); EOS % 0.5 % (0.0-3.0); HEMATOCRIT 31.7 % (42.0-52.0); HEMOGLOBIN 9.9 g/dl (13.5-17.5); IMMATURE GRANULOCYTE % 1.5 % (0-3.0); LYMPH # 1.1 10^3/uL (1.5-4.5); LYMPH % 11.8 % (24.0-44.0); MEAN CORPUSCULAR HGB CONC 31.2 g/dl (32.0-36.5); MEAN CORPUSCULAR VOLUME 86.6 fl (80.0-96.0); MONO # 0.8 10^3/uL (0.0-0.8); NEUTROPHILS # 7.4 10^3/uL (1.8-7.7); NEUTROPHILS % 77.8 % (36.0-66.0); PLATELET COUNT, AUTOMATED 377 10^3/uL (150-450); RED BLOOD COUNT 3.66 10^6/uL (4.30-6.10); WHITE BLOOD COUNT 9.5 10^3/uL (4.0-10.0)
[2018-03-11 13:21] LABS: AMMONIA 19 uMOL/L (<32)
[2018-03-11 13:25] LABS: ALBUMIN 2.4 GM/DL (3.2-5.2); ALBUMIN/GLOBULIN RATIO 0.47 (1.00-1.93); ALKALINE PHOSPHATASE 220 U/L (45-117); ALT/SGPT 28 U/L (12-78); ANION GAP 10 MEQ/L (8-16); AST/SGOT 35 U/L (7-37); BILIRUBIN,DIRECT 0.2 MG/DL (0.0-0.2); BILIRUBIN,TOTAL 0.3 MG/DL (0.2-1.0); BLOOD UREA NITROGEN 19 MG/DL (7-18); CALCIUM LEVEL 8.7 MG/DL (8.8-10.2); CARBON DIOXIDE LEVEL 25 MEQ/L (21-32); CHLORIDE LEVEL 101 MEQ/L (98-107); CPK CREATINE PHOSPHOKINASE 47 U/L (39-308); CREATININE FOR GFR 2.14 MG/DL (0.70-1.30); GLOMERULAR FILTRATION RATE 31.7 (>35); GLUCOSE, FASTING 224 MG/DL (70-100); POTASSIUM SERUM 4.7 MEQ/L (3.5-5.1); SODIUM LEVEL 136 MEQ/L (136-145); TOTAL PROTEIN 7.5 GM/DL (6.4-8.2); TROPONIN I < 0.02 NG/ML (< 0.10)
[2018-03-11 13:30] LABS: CK-MB VALUE MASS < 1.0 NG/ML (<3.6); MB/CK RELATIVE INDEX 2.12 (< OR =4)
[2018-03-11 13:54] LABS: IONIZED CALCIUM 4.6 MG/DL (4.5-5.3)
[2018-03-11 14:17] LABS: AMORPHOUS SEDIMENT RFX SMALL (NEGATIVE); KETONE, URINE AUTO RFX NEGATIVE (NEGATIVE); MUCUS, URINE RFX SMALL (NEGATIVE); RBC, URINE AUTO RFX 33 /HPF (0-3); SPECIFIC GRAVITY UR AUTO RFX 1.016 (1.002-1.035); SQUAM EPITHELIAL CELL UR AURFX 1 /HPF (0-6); TRANSITIONAL EPITHELIAL AU RFX 1 /HPF
[2018-03-11 14:18] LABS: LEUKOCYTE ESTERASE UR AUTO RFX 3+ (NEGATIVE); NITRITE, URINE AUTO RFX POSITIVE (NEGATIVE); WBC, URINE AUTO RFX TNTC /HPF (0-3)
[2018-03-11 14:23] LABS: LACTIC ACID SEPSIS PROTOCOL 2.2 MMOL/L (0.4-2.0)
[2018-03-11] MEDS: CIPROFLOXACIN 400 MG in APPROPRIATE DILUENT 1 EA IV (15:00)
[2018-03-11] MEDS ORDERED: DEXTROSE 50% 50 ML SYRINGE IV (19:15)
[2018-03-11] MEDS ORDERED: CALCIUM CARBONATE 500 MG CHEW U/D PO (19:15)
[2018-03-11] MEDS ORDERED: GLUCAGON FOR INJ 1 MG VIAL (J1610) SC (19:15)
[2018-03-11] MEDS ORDERED: GLUCOSE 4 GM CHEW TABLET PO (19:15)
[2018-03-11 19:54] LABS: FREE THYROXINE INDEX 3.9 % (1.4-3.8); T UPTAKE 38 % (33-40); THYROXINE (T4) 10.3 UG/DL (4.5-12.0)
[2018-03-11 21:21] LABS: BEDSIDE GLUCOSE 113 MG/DL (83-110)
[2018-03-11] MEDS ORDERED: CIPROFLOXACIN 400 MG in APPROPRIATE DILUENT 1 EA IV (22:00)
[2018-03-11] MEDS: HumaLOG INSULIN (NovoLOG) PER UNIT SC (22:26)
[2018-03-11 22:59] LABS: CPK CREATINE PHOSPHOKINASE 44 U/L (39-308); TROPONIN I 0.02 NG/ML (< 0.10)
[2018-03-11 23:00] LABS: CK-MB VALUE MASS < 1.0 NG/ML (<3.6); MB/CK RELATIVE INDEX 2.27 (< OR =4)
[2018-03-11] MEDS: ISOSORBIDE MON. (IMDUR) 60 MG XR TAB PO (23:10)
[2018-03-11] MEDS: LEVEMIR (INSULIN DETEMIR) 1 UNITS/0.01ML SC (23:10)
[2018-03-11] MEDS: SENOKOT S TAB PO (23:10)
[2018-03-11] MEDS: MIRTAZAPINE 7.5MG PER 1/2 TABLET PO (23:11)
[2018-03-11] MEDS: TOLTERODINE TARTRATE 2 MG LA CAP (DETROL LA) PO (23:11)
[2018-03-11] MEDS: SODIUM BICARBONATE 325 MG TAB PO (23:11)
[2018-03-11] MEDS: ARIPiprazole 2 MG TAB PO (23:11)
[2018-03-11] MEDS: HEPARIN SOD (PORCINE) 5000 UNITS/ML VIAL SC (23:12)
[2018-03-12] MEDS: NS 1,000 ML IV ×3 (00:43→22:30)
[2018-03-12] MEDS: CIPROFLOXACIN 400 MG in APPROPRIATE DILUENT 1 EA IV ×2 (02:46→14:58)
[2018-03-12 04:41] LABS: CHLORIDE,RANDOM URINE 165 MEQ/L; CREATININE,RANDOM URINE 72.3 MG/DL; POTASSIUM RANDOM URINE 17.4 MEQ/L; SODIUM,RANDOM URINE 181 MEQ/L; TOTAL PROTEIN,RANDOM URINE 60.1 MG/DL (0.0-12.0)
[2018-03-12 04:43] LABS: OSMOLALITY URINE 505 MOSM/KG (500-800)
[2018-03-12 06:23] LABS: HEMATOCRIT 25.7 % (42.0-52.0); HEMOGLOBIN 8.2 g/dl (13.5-17.5); MEAN CORPUSCULAR HEMOGLOBIN 27.2 pg (27.0-33.0); MEAN CORPUSCULAR HGB CONC 31.9 g/dl (32.0-36.5); MEAN CORPUSCULAR VOLUME 85.1 fl (80.0-96.0); PLATELET COUNT, AUTOMATED 315 10^3/uL (150-450); RED BLOOD COUNT 3.02 10^6/uL (4.30-6.10); RED CELL DISTRIBUTION WIDTH 14.8 % (11.5-14.5); WHITE BLOOD COUNT 8.1 10^3/uL (4.0-10.0)
[2018-03-12 06:55] LABS: ANION GAP 10 MEQ/L (8-16); BLOOD UREA NITROGEN 17 MG/DL (7-18); C REACTIVE PROTEIN QUANTITATIV 9.39 MG/DL (0.00-0.30); CALCIUM LEVEL 8.2 MG/DL (8.8-10.2); CARBON DIOXIDE LEVEL 23 MEQ/L (21-32); CHLORIDE LEVEL 106 MEQ/L (98-107); CREATININE FOR GFR 1.81 MG/DL (0.70-1.30); GLOMERULAR FILTRATION RATE 38.4 (>35); GLUCOSE, FASTING 102 MG/DL (70-100); MAGNESIUM LEVEL 1.9 MG/DL (1.8-2.4); PHOSPHORUS LEVEL 3.5 MG/DL (2.5-4.9); POTASSIUM SERUM 4.4 MEQ/L (3.5-5.1); SODIUM LEVEL 139 MEQ/L (136-145)
[2018-03-12 07:08] LABS: ALBUMIN 1.9 GM/DL (3.2-5.2)
[2018-03-12] MEDS: HumaLOG INSULIN (NovoLOG) PER UNIT SC ×4 (08:24→21:00)
[2018-03-12] MEDS: BICALUTAMIDE 50 MG TAB PO (08:24)
[2018-03-12] MEDS: SODIUM BICARBONATE 325 MG TAB PO ×2 (08:24→21:43)
[2018-03-12] MEDS: VITAMIN D 1,000 INTERNATIONAL UNITS TABLET PO (08:24)
[2018-03-12] MEDS: OMEPRAZOLE 20 MG CAP PO (08:24)
[2018-03-12] MEDS: SENOKOT S TAB PO ×2 (08:25→21:00)
[2018-03-12] MEDS: ASPIRIN 81 MG ENTERIC TAB PO (08:25)
[2018-03-12] MEDS: ATENOLOL 25 MG TAB PO (08:25)
[2018-03-12] MEDS: DONEPEZIL 5 MG TAB PO (08:25)
[2018-03-12] MEDS: HEPARIN SOD (PORCINE) 5000 UNITS/ML VIAL SC ×2 (08:26→21:42)
[2018-03-12 11:56] LABS: BEDSIDE GLUCOSE 171 MG/DL (83-110)
[2018-03-12 16:44] LABS: BEDSIDE GLUCOSE 220 MG/DL (83-110)
[2018-03-12 20:08] LABS: BEDSIDE GLUCOSE 76 MG/DL (83-110)
[2018-03-12] MEDS: LEVEMIR (INSULIN DETEMIR) 1 UNITS/0.01ML SC (21:00)
[2018-03-12] MEDS: MIRTAZAPINE 7.5MG PER 1/2 TABLET PO (21:43)
[2018-03-12] MEDS: TOLTERODINE TARTRATE 2 MG LA CAP (DETROL LA) PO (21:43)
[2018-03-12] MEDS: ARIPiprazole 2 MG TAB PO (21:43)
[2018-03-12] MEDS: ISOSORBIDE MON. (IMDUR) 60 MG XR TAB PO (21:44)
[2018-03-13] MEDS: CIPROFLOXACIN 400 MG in APPROPRIATE DILUENT 1 EA IV (02:49)
[2018-03-13] MEDS: NS 1,000 ML IV (05:45)
[2018-03-13 06:03] LABS: HEMATOCRIT 26.6 % (42.0-52.0); HEMOGLOBIN 8.3 g/dl (13.5-17.5); MEAN CORPUSCULAR HEMOGLOBIN 26.9 pg (27.0-33.0); MEAN CORPUSCULAR HGB CONC 31.2 g/dl (32.0-36.5); MEAN CORPUSCULAR VOLUME 86.1 fl (80.0-96.0); PLATELET COUNT, AUTOMATED 349 10^3/uL (150-450); RED BLOOD COUNT 3.09 10^6/uL (4.30-6.10); RED CELL DISTRIBUTION WIDTH 14.9 % (11.5-14.5); WHITE BLOOD COUNT 10.1 10^3/uL (4.0-10.0)
[2018-03-13 06:46] LABS: ANION GAP 12 MEQ/L (8-16); BLOOD UREA NITROGEN 15 MG/DL (7-18); CALCIUM LEVEL 8.3 MG/DL (8.8-10.2); CARBON DIOXIDE LEVEL 23 MEQ/L (21-32); CHLORIDE LEVEL 108 MEQ/L (98-107); CREATININE FOR GFR 1.71 MG/DL (0.70-1.30); GLUCOSE, FASTING 155 MG/DL (70-100); MAGNESIUM LEVEL 1.7 MG/DL (1.8-2.4); PHOSPHORUS LEVEL 2.9 MG/DL (2.5-4.9); POTASSIUM SERUM 4.4 MEQ/L (3.5-5.1); SODIUM LEVEL 143 MEQ/L (136-145)
[2018-03-13] MEDS: OMEPRAZOLE 20 MG CAP PO (08:17)
[2018-03-13] MEDS: SENOKOT S TAB PO ×2 (08:17→20:47)
[2018-03-13] MEDS: SODIUM BICARBONATE 325 MG TAB PO ×2 (08:17→20:46)
[2018-03-13] MEDS: ASPIRIN 81 MG ENTERIC TAB PO (08:17)
[2018-03-13] MEDS: VITAMIN D 1,000 INTERNATIONAL UNITS TABLET PO (08:17)
[2018-03-13] MEDS: ATENOLOL 25 MG TAB PO (08:18)
[2018-03-13] MEDS: HumaLOG INSULIN (NovoLOG) PER UNIT SC ×4 (08:19→20:35)
[2018-03-13] MEDS: DONEPEZIL 5 MG TAB PO (08:19)
[2018-03-13] MEDS: BICALUTAMIDE 50 MG TAB PO (08:19)
[2018-03-13] MEDS: HEPARIN SOD (PORCINE) 5000 UNITS/ML VIAL SC ×2 (08:19→20:47)
[2018-03-13] MEDS: BACTRIM 160MG/800MG DS TAB PO ×2 (10:16→20:46)
[2018-03-13 12:17] LABS: BEDSIDE GLUCOSE 157 MG/DL (83-110)
[2018-03-13 16:48] LABS: BEDSIDE GLUCOSE 118 MG/DL (83-110)
[2018-03-13] MEDS: ACETAMINOPHEN TAB 650MG DOSE (2X325MG) PO (18:02)
[2018-03-13 20:20] LABS: BEDSIDE GLUCOSE 170 MG/DL (83-110)
[2018-03-13] MEDS: ISOSORBIDE MON. (IMDUR) 60 MG XR TAB PO (20:46)
[2018-03-13] MEDS: ARIPiprazole 2 MG TAB PO (20:46)
[2018-03-13] MEDS: MIRTAZAPINE 7.5MG PER 1/2 TABLET PO (20:46)
[2018-03-13] MEDS: TOLTERODINE TARTRATE 2 MG LA CAP (DETROL LA) PO (20:46)
[2018-03-14 06:09] LABS: HEMATOCRIT 29.7 % (42.0-52.0); HEMOGLOBIN 9.4 g/dl (13.5-17.5); MEAN CORPUSCULAR HEMOGLOBIN 27.2 pg (27.0-33.0); MEAN CORPUSCULAR HGB CONC 31.6 g/dl (32.0-36.5); MEAN CORPUSCULAR VOLUME 86.1 fl (80.0-96.0); PLATELET COUNT, AUTOMATED 394 10^3/uL (150-450); RED BLOOD COUNT 3.45 10^6/uL (4.30-6.10); RED CELL DISTRIBUTION WIDTH 15.1 % (11.5-14.5); WHITE BLOOD COUNT 8.8 10^3/uL (4.0-10.0)
[2018-03-14 06:20] LABS: ALBUMIN 2.1 GM/DL (3.2-5.2); ANION GAP 8 MEQ/L (8-16); BLOOD UREA NITROGEN 13 MG/DL (7-18); CALCIUM LEVEL 8.8 MG/DL (8.8-10.2); CARBON DIOXIDE LEVEL 23 MEQ/L (21-32); CHLORIDE LEVEL 106 MEQ/L (98-107); CREATININE FOR GFR 1.87 MG/DL (0.70-1.30); GLUCOSE, FASTING 150 MG/DL (70-100); MAGNESIUM LEVEL 1.7 MG/DL (1.8-2.4); PHOSPHORUS LEVEL 3.4 MG/DL (2.5-4.9); SODIUM LEVEL 137 MEQ/L (136-145)
[2018-03-14] MEDS: SENOKOT S TAB PO ×2 (09:00→21:31)
[2018-03-14] MEDS: ANEXSIA, NORCO 7.5MG/325MG TABLET(HYDROCODONE/APAP) PO (09:41)
[2018-03-14] MEDS: VITAMIN D 1,000 INTERNATIONAL UNITS TABLET PO (09:42)
[2018-03-14] MEDS: ASPIRIN 81 MG ENTERIC TAB PO (09:42)
[2018-03-14] MEDS: BICALUTAMIDE 50 MG TAB PO (09:42)
[2018-03-14] MEDS: ATENOLOL 25 MG TAB PO (09:42)
[2018-03-14] MEDS: OMEPRAZOLE 20 MG CAP PO (09:42)
[2018-03-14] MEDS: DONEPEZIL 5 MG TAB PO (09:42)
[2018-03-14] MEDS: BACTRIM 160MG/800MG DS TAB PO ×2 (09:42→21:31)
[2018-03-14] MEDS: HEPARIN SOD (PORCINE) 5000 UNITS/ML VIAL SC ×2 (09:43→21:32)
[2018-03-14] MEDS: HumaLOG INSULIN (NovoLOG) PER UNIT SC ×4 (09:43→21:00)
[2018-03-14] MEDS ORDERED: LIDOCAINE 1% MDV 20ML VIAL As Ordered (11:43)
[2018-03-14] MEDS: SODIUM BICARBONATE 325 MG TAB PO ×2 (11:56→21:30)
[2018-03-14 11:57] LABS: BEDSIDE GLUCOSE 207 MG/DL (83-110)
[2018-03-14 15:48] LABS: ANION GAP 11 MEQ/L (8-16); BLOOD UREA NITROGEN 15 MG/DL (7-18); CALCIUM LEVEL 9.2 MG/DL (8.8-10.2); CARBON DIOXIDE LEVEL 23 MEQ/L (21-32); CHLORIDE LEVEL 102 MEQ/L (98-107); CPK CREATINE PHOSPHOKINASE 46 U/L (39-308); CREATININE FOR GFR 2.05 MG/DL (0.70-1.30); GLOMERULAR FILTRATION RATE 33.3 (>35); GLUCOSE, FASTING 158 MG/DL (70-100); POTASSIUM SERUM 4.7 MEQ/L (3.5-5.1); SODIUM LEVEL 136 MEQ/L (136-145); TROPONIN I < 0.02 NG/ML (< 0.10)
[2018-03-14 15:49] LABS: CK-MB VALUE MASS < 1.0 NG/ML (<3.6); MB/CK RELATIVE INDEX 2.17 (< OR =4)
[2018-03-14 17:22] LABS: BEDSIDE GLUCOSE 156 MG/DL (83-110)
[2018-03-14 20:33] LABS: BEDSIDE GLUCOSE 106 MG/DL (83-110)
[2018-03-14] MEDS: TOLTERODINE TARTRATE 2 MG LA CAP (DETROL LA) PO (21:31)
[2018-03-14] MEDS: ARIPiprazole 2 MG TAB PO (21:31)
[2018-03-14] MEDS: MIRTAZAPINE 7.5MG PER 1/2 TABLET PO (21:31)
[2018-03-14] MEDS: ISOSORBIDE MON. (IMDUR) 60 MG XR TAB PO (21:32)
[2018-03-15 05:48] LABS: HEMATOCRIT 27.6 % (42.0-52.0); HEMOGLOBIN 8.7 g/dl (13.5-17.5); MEAN CORPUSCULAR HEMOGLOBIN 27.3 pg (27.0-33.0); MEAN CORPUSCULAR HGB CONC 31.5 g/dl (32.0-36.5); MEAN CORPUSCULAR VOLUME 86.5 fl (80.0-96.0); PLATELET COUNT, AUTOMATED 363 10^3/uL (150-450); RED BLOOD COUNT 3.19 10^6/uL (4.30-6.10); RED CELL DISTRIBUTION WIDTH 15.1 % (11.5-14.5); WHITE BLOOD COUNT 8.2 10^3/uL (4.0-10.0)
[2018-03-15 06:03] LABS: ALBUMIN 2.1 GM/DL (3.2-5.2); ANION GAP 10 MEQ/L (8-16); BLOOD UREA NITROGEN 21 MG/DL (7-18); CALCIUM LEVEL 8.4 MG/DL (8.8-10.2); CARBON DIOXIDE LEVEL 23 MEQ/L (21-32); CHLORIDE LEVEL 103 MEQ/L (98-107); CREATININE FOR GFR 2.18 MG/DL (0.70-1.30); GLUCOSE, FASTING 139 MG/DL (70-100); MAGNESIUM LEVEL 1.7 MG/DL (1.8-2.4); PHOSPHORUS LEVEL 3.7 MG/DL (2.5-4.9); POTASSIUM SERUM 4.4 MEQ/L (3.5-5.1); SODIUM LEVEL 136 MEQ/L (136-145)
[2018-03-15] MEDS: ANEXSIA, NORCO 7.5MG/325MG TABLET(HYDROCODONE/APAP) PO ×2 (06:29→20:10)
[2018-03-15] MEDS: HumaLOG INSULIN (NovoLOG) PER UNIT SC ×4 (07:30→20:01)
[2018-03-15] MEDS: ASPIRIN 81 MG ENTERIC TAB PO (09:28)
[2018-03-15] MEDS: VITAMIN D 1,000 INTERNATIONAL UNITS TABLET PO (09:28)
[2018-03-15] MEDS: BICALUTAMIDE 50 MG TAB PO (09:28)
[2018-03-15] MEDS: DONEPEZIL 5 MG TAB PO (09:29)
[2018-03-15] MEDS: SODIUM BICARBONATE 325 MG TAB PO ×2 (09:29→20:08)
[2018-03-15] MEDS: SENOKOT S TAB PO ×2 (09:30→20:10)
[2018-03-15] MEDS: ATENOLOL 25 MG TAB PO (09:30)
[2018-03-15] MEDS: HEPARIN SOD (PORCINE) 5000 UNITS/ML VIAL SC ×2 (09:31→20:08)
[2018-03-15] MEDS: BACTRIM 160MG/800MG DS TAB PO ×2 (09:31→20:09)
[2018-03-15] MEDS: OMEPRAZOLE 20 MG CAP PO (09:54)
[2018-03-15] MEDS ORDERED: ISOVUE-300 61% 50ML VIAL (Q9967) As Ordered (11:50)
[2018-03-15] MEDS ORDERED: fentaNYL 100 MCG/2 ML INJECTION (J3010) As Ordered (12:40)
[2018-03-15] MEDS: LR 1,000 ML IV (13:45)
[2018-03-15] MEDS ORDERED: ONDANSETRON 4MG/2ML VIAL (J2405) IV (13:45)
[2018-03-15 14:26] LABS: BEDSIDE GLUCOSE 151 MG/DL (83-110)
[2018-03-15 17:01] LABS: BEDSIDE GLUCOSE 228 MG/DL (83-110)
[2018-03-15 19:56] LABS: BEDSIDE GLUCOSE 119 MG/DL (83-110)
[2018-03-15] MEDS: ISOSORBIDE MON. (IMDUR) 60 MG XR TAB PO (20:09)
[2018-03-15] MEDS: TOLTERODINE TARTRATE 2 MG LA CAP (DETROL LA) PO (20:10)
[2018-03-15] MEDS: MIRTAZAPINE 7.5MG PER 1/2 TABLET PO (20:10)
[2018-03-15] MEDS: ARIPiprazole 2 MG TAB PO (20:11)
[2018-03-16 06:20] LABS: HEMATOCRIT 28.1 % (42.0-52.0); HEMOGLOBIN 8.9 g/dl (13.5-17.5); MEAN CORPUSCULAR HEMOGLOBIN 27.4 pg (27.0-33.0); MEAN CORPUSCULAR HGB CONC 31.7 g/dl (32.0-36.5); MEAN CORPUSCULAR VOLUME 86.5 fl (80.0-96.0); PLATELET COUNT, AUTOMATED 395 10^3/uL (150-450); RED BLOOD COUNT 3.25 10^6/uL (4.30-6.10); RED CELL DISTRIBUTION WIDTH 15.2 % (11.5-14.5); WHITE BLOOD COUNT 8.9 10^3/uL (4.0-10.0)
[2018-03-16 06:48] LABS: ALBUMIN 2.1 GM/DL (3.2-5.2); ANION GAP 10 MEQ/L (8-16); BLOOD UREA NITROGEN 29 MG/DL (7-18); CALCIUM LEVEL 8.7 MG/DL (8.8-10.2); CARBON DIOXIDE LEVEL 23 MEQ/L (21-32); CHLORIDE LEVEL 103 MEQ/L (98-107); CREATININE FOR GFR 2.38 MG/DL (0.70-1.30); GLUCOSE, FASTING 145 MG/DL (70-100); PHOSPHORUS LEVEL 3.8 MG/DL (2.5-4.9); POTASSIUM SERUM 4.6 MEQ/L (3.5-5.1); SODIUM LEVEL 136 MEQ/L (136-145)
[2018-03-16] MEDS: HEPARIN SOD (PORCINE) 5000 UNITS/ML VIAL SC ×2 (08:29→20:08)
[2018-03-16] MEDS: HumaLOG INSULIN (NovoLOG) PER UNIT SC ×4 (08:30→20:21)
[2018-03-16] MEDS: DONEPEZIL 5 MG TAB PO (08:31)
[2018-03-16] MEDS: OMEPRAZOLE 20 MG CAP PO (08:31)
[2018-03-16] MEDS: ASPIRIN 81 MG ENTERIC TAB PO (08:31)
[2018-03-16] MEDS: VITAMIN D 1,000 INTERNATIONAL UNITS TABLET PO (08:32)
[2018-03-16] MEDS: ATENOLOL 25 MG TAB PO (08:32)
[2018-03-16] MEDS: BICALUTAMIDE 50 MG TAB PO (08:36)
[2018-03-16] MEDS ORDERED: MEGESTROL SUSP 400 MG/10 ML UDC PO (09:00)
[2018-03-16] MEDS: SENOKOT S TAB PO ×2 (09:08→20:07)
[2018-03-16] MEDS: SODIUM BICARBONATE 325 MG TAB PO ×2 (11:10→20:08)
[2018-03-16] MEDS: ACETAMINOPHEN TAB 650MG DOSE (2X325MG) PO ×2 (11:37→16:59)
[2018-03-16 12:09] LABS: BEDSIDE GLUCOSE 283 MG/DL (83-110)
[2018-03-16] MEDS: LINEZOLID 600MG TABLET (ZYVOX) PO ×2 (12:51→20:06)
[2018-03-16] MEDS: MOM 30ML SUSPENSION UDC PO (12:51)
[2018-03-16] MEDS: ONDANSETRON 4MG/2ML VIAL (J2405) IV (12:51)
[2018-03-16] MEDS: NS 1,000 ML IV (12:51)
[2018-03-16 16:48] LABS: BEDSIDE GLUCOSE 90 MG/DL (83-110)
[2018-03-16] MEDS: MEGESTROL SUSP 400 MG/10 ML UDC PO (16:59)
[2018-03-16 19:57] LABS: BEDSIDE GLUCOSE 270 MG/DL (83-110)
[2018-03-16] MEDS: ARIPiprazole 2 MG TAB PO (20:07)
[2018-03-16] MEDS: ISOSORBIDE MON. (IMDUR) 60 MG XR TAB PO (20:07)
[2018-03-16] MEDS: MIRTAZAPINE 7.5MG PER 1/2 TABLET PO (20:08)
[2018-03-16] MEDS: TOLTERODINE TARTRATE 2 MG LA CAP (DETROL LA) PO (20:08)
[2018-03-17] MEDS: NS 1,000 ML IV (01:23)
[2018-03-17 06:26] LABS: HEMOGLOBIN 8.2 g/dl (13.5-17.5); MEAN CORPUSCULAR HEMOGLOBIN 27.1 pg (27.0-33.0); MEAN CORPUSCULAR HGB CONC 31.5 g/dl (32.0-36.5); MEAN CORPUSCULAR VOLUME 85.8 fl (80.0-96.0); PLATELET COUNT, AUTOMATED 360 10^3/uL (150-450); RED BLOOD COUNT 3.03 10^6/uL (4.30-6.10); RED CELL DISTRIBUTION WIDTH 15.1 % (11.5-14.5); WHITE BLOOD COUNT 7.7 10^3/uL (4.0-10.0)
[2018-03-17 06:37] LABS: ALBUMIN 2.1 GM/DL (3.2-5.2); ANION GAP 8 MEQ/L (8-16); BLOOD UREA NITROGEN 27 MG/DL (7-18); CALCIUM LEVEL 8.7 MG/DL (8.8-10.2); CARBON DIOXIDE LEVEL 24 MEQ/L (21-32); CHLORIDE LEVEL 102 MEQ/L (98-107); GLOMERULAR FILTRATION RATE 29.1 (>35); GLUCOSE, FASTING 158 MG/DL (70-100); MAGNESIUM LEVEL 1.9 MG/DL (1.8-2.4); POTASSIUM SERUM 4.2 MEQ/L (3.5-5.1); SODIUM LEVEL 134 MEQ/L (136-145)
[2018-03-17] MEDS: ATENOLOL 25 MG TAB PO ×2 (09:00→09:11)
[2018-03-17] MEDS: HumaLOG INSULIN (NovoLOG) PER UNIT SC ×4 (09:08→19:52)
[2018-03-17] MEDS: SODIUM BICARBONATE 325 MG TAB PO (09:08)
[2018-03-17] MEDS: HEPARIN SOD (PORCINE) 5000 UNITS/ML VIAL SC ×2 (09:08→20:29)
[2018-03-17] MEDS: OMEPRAZOLE 20 MG CAP PO (09:09)
[2018-03-17] MEDS: SENOKOT S TAB PO ×2 (09:09→20:30)
[2018-03-17] MEDS: LINEZOLID 600MG TABLET (ZYVOX) PO ×2 (09:09→20:29)
[2018-03-17] MEDS: ASPIRIN 81 MG ENTERIC TAB PO (09:09)
[2018-03-17] MEDS: VITAMIN D 1,000 INTERNATIONAL UNITS TABLET PO (09:11)
[2018-03-17] MEDS: DONEPEZIL 5 MG TAB PO (09:11)
[2018-03-17] MEDS: MEGESTROL SUSP 400 MG/10 ML UDC PO (09:12)
[2018-03-17] MEDS: BICALUTAMIDE 50 MG TAB PO (09:16)
[2018-03-17 11:44] LABS: BEDSIDE GLUCOSE 149 MG/DL (83-110)
[2018-03-17 17:01] LABS: BEDSIDE GLUCOSE 167 MG/DL (83-110)
[2018-03-17] MEDS ORDERED: HALOPERIDOL 0.25MG PER 1/2 TABLET PO (17:15)
[2018-03-17] MEDS ORDERED: PILL CRUSHER/CUTTER 1 EACH XX (18:15)
[2018-03-17] MEDS ORDERED: HALOPERIDOL 0.5 MG TAB PO (18:15)
[2018-03-17 19:48] LABS: BEDSIDE GLUCOSE 144 MG/DL (83-110)
[2018-03-17] MEDS: ISOSORBIDE MON. (IMDUR) 60 MG XR TAB PO (19:53)
[2018-03-17] MEDS: MIRTAZAPINE 7.5MG PER 1/2 TABLET PO (20:29)
[2018-03-17] MEDS: TOLTERODINE TARTRATE 2 MG LA CAP (DETROL LA) PO (20:29)
[2018-03-17] MEDS: ACETAMINOPHEN TAB 650MG DOSE (2X325MG) PO (22:54)
[2018-03-18 05:56] LABS: HEMATOCRIT 28.9 % (42.0-52.0); MEAN CORPUSCULAR HEMOGLOBIN 27.1 pg (27.0-33.0); MEAN CORPUSCULAR HGB CONC 31.1 g/dl (32.0-36.5); PLATELET COUNT, AUTOMATED 364 10^3/uL (150-450); RED BLOOD COUNT 3.32 10^6/uL (4.30-6.10); WHITE BLOOD COUNT 7.2 10^3/uL (4.0-10.0)
[2018-03-18 06:11] LABS: ALBUMIN 2.3 GM/DL (3.2-5.2); ANION GAP 9 MEQ/L (8-16); BLOOD UREA NITROGEN 22 MG/DL (7-18); CALCIUM LEVEL 9.3 MG/DL (8.8-10.2); CARBON DIOXIDE LEVEL 24 MEQ/L (21-32); CHLORIDE LEVEL 103 MEQ/L (98-107); CREATININE FOR GFR 2.03 MG/DL (0.70-1.30); GLOMERULAR FILTRATION RATE 33.6 (>35); GLUCOSE, FASTING 144 MG/DL (70-100); PHOSPHORUS LEVEL 2.8 MG/DL (2.5-4.9); POTASSIUM SERUM 4.3 MEQ/L (3.5-5.1); SODIUM LEVEL 136 MEQ/L (136-145)
[2018-03-18] MEDS: LINEZOLID 600MG TABLET (ZYVOX) PO (08:59)
[2018-03-18] MEDS: HEPARIN SOD (PORCINE) 5000 UNITS/ML VIAL SC (08:59)
[2018-03-18] MEDS: BICALUTAMIDE 50 MG TAB PO (08:59)
[2018-03-18] MEDS: HumaLOG INSULIN (NovoLOG) PER UNIT SC ×2 (08:59→12:10)
[2018-03-18] MEDS: MEGESTROL SUSP 400 MG/10 ML UDC PO (08:59)
[2018-03-18] MEDS: OMEPRAZOLE 20 MG CAP PO (08:59)
[2018-03-18] MEDS: DONEPEZIL 5 MG TAB PO (09:00)
[2018-03-18] MEDS: VITAMIN D 1,000 INTERNATIONAL UNITS TABLET PO (09:00)
[2018-03-18] MEDS: ATENOLOL 25 MG TAB PO (09:01)
[2018-03-18] MEDS: ASPIRIN 81 MG ENTERIC TAB PO (09:01)
[2018-03-18] MEDS: SENOKOT S TAB PO ×2 (09:01→20:24)
[2018-03-18 11:26] LABS: BEDSIDE GLUCOSE 214 MG/DL (83-110)
[2018-03-18] MEDS: ACETAMINOPHEN TAB 650MG DOSE (2X325MG) PO ×2 (13:00→22:36)
[2018-03-18] MEDS ORDERED: SCOPOLAMINE 1MG TRANSDERMAL PATCH TOP (13:30)
[2018-03-18] MEDS: MIRTAZAPINE 7.5MG PER 1/2 TABLET PO (20:24)
[2018-03-18] MEDS: TOLTERODINE TARTRATE 2 MG LA CAP (DETROL LA) PO (20:25)
[2018-03-19] MEDS: OMEPRAZOLE 20 MG CAP PO (08:50)
[2018-03-19] MEDS: SENOKOT S TAB PO ×2 (08:50→20:38)
[2018-03-19] MEDS: DONEPEZIL 5 MG TAB PO (08:50)
[2018-03-19] MEDS: MEGESTROL SUSP 400 MG/10 ML UDC PO (08:58)
[2018-03-19] MEDS: ACETAMINOPHEN TAB 650MG DOSE (2X325MG) PO (09:04)
[2018-03-19] MEDS: TOLTERODINE TARTRATE 2 MG LA CAP (DETROL LA) PO (20:38)
[2018-03-19] MEDS: MIRTAZAPINE 7.5MG PER 1/2 TABLET PO (20:38)
[2018-03-20] MEDS: OMEPRAZOLE 20 MG CAP PO (09:52)
[2018-03-20] MEDS: MEGESTROL SUSP 400 MG/10 ML UDC PO (09:52)
[2018-03-20] MEDS: DONEPEZIL 5 MG TAB PO (09:52)
[2018-03-20] MEDS: SENOKOT S TAB PO ×2 (09:52→21:16)
[2018-03-20] MEDS: ACETAMINOPHEN TAB 650MG DOSE (2X325MG) PO (21:16)
[2018-03-20] MEDS: LORazepam 1 MG TAB PO (21:16)
[2018-03-20] MEDS: TOLTERODINE TARTRATE 2 MG LA CAP (DETROL LA) PO (21:16)
[2018-03-20] MEDS: MIRTAZAPINE 7.5MG PER 1/2 TABLET PO (21:22)
[2018-03-21] MEDS: LORazepam 1 MG TAB PO ×2 (00:20→08:15)
[2018-03-21] MEDS: MORPHINE 10MG/0.5ML ORAL CONCENTRATE SOLUTION U/D SL (00:53)
[2018-03-21] MEDS: ACETAMINOPHEN TAB 650MG DOSE (2X325MG) PO (04:28)
[2018-03-21 06:35] LABS: BEDSIDE GLUCOSE 222 MG/DL (83-110)
[2018-03-21] MEDS: DONEPEZIL 5 MG TAB PO (08:15)
[2018-03-21] MEDS: MEGESTROL SUSP 400 MG/10 ML UDC PO (08:15)
[2018-03-21] MEDS: SENOKOT S TAB PO (08:15)
[2018-03-21] MEDS: OMEPRAZOLE 20 MG CAP PO (08:15)
== END 2018-03-21 10:34 | DRG 690 ==
LOC: M ED 12:09 → M ED INP 19:11 → M MSPAV 20:25
PROC: 0TB33ZX Excision of Right Kidney Pelvis, Percutaneous Approach, Diagnostic (ICD-10-PCS; principal; 2018-03-14)
PROC: 0T9430Z Drainage of Left Kidney Pelvis with Drainage Device, Percutaneous Approach (ICD-10-PCS; 2018-03-15)
DX: N13.6 Pyonephrosis (principal); C79.51 Secondary malignant neoplasm of bone; C78.00 Secondary malignant neoplasm of unspecified lung; E87.2 Acidosis; E46 Unspecified protein-calorie malnutrition; C79.89 Secondary malignant neoplasm of other specified sites; C61 Malignant neoplasm of prostate; N39.0 Urinary tract infection, site not specified; N17.9 Acute kidney failure, unspecified; I25.10 Atherosclerotic heart disease of native coronary artery without angina pectoris; F03.90 Unspecified dementia, unspecified severity, without behavioral disturbance, psychotic disturbance, mood disturbance, and anxiety; Z51.5 Encounter for palliative care; Z66 Do not resuscitate; E11.22 Type 2 diabetes mellitus with diabetic chronic kidney disease; K21.9 Gastro-esophageal reflux disease without esophagitis; F32.9 Major depressive disorder, single episode, unspecified; N18.3 Chronic kidney disease, stage 3 (moderate); D63.1 Anemia in chronic kidney disease; I13.10 Hypertensive heart and chronic kidney disease without heart failure, with stage 1 through stage 4 chronic kidney disease, or unspecified chronic kidney disease; D63.0 Anemia in neoplastic disease; B95.8 Unspecified staphylococcus as the cause of diseases classified elsewhere; M48.56XD Collapsed vertebra, not elsewhere classified, lumbar region, subsequent encounter for fracture with routine healing; Z85.038 Personal history of other malignant neoplasm of large intestine; Z86.73 Personal history of transient ischemic attack (TIA), and cerebral infarction without residual deficits; Z95.1 Presence of aortocoronary bypass graft; Z88.0 Allergy status to penicillin; Z88.1 Allergy status to other antibiotic agents; Z90.49 Acquired absence of other specified parts of digestive tract; Z79.4 Long term (current) use of insulin; Z79.82 Long term (current) use of aspirin; Z79.899 Other long term (current) drug therapy